=== PATIENT | female | born 1985 | race Caucasian/White ===

== ENCOUNTER 2017-01-28 09:27 | Emergency (ER) | payer SELFPAY ==
[2017-01-28 09:33] VITALS: BMI 19.6
[2017-01-28 10:49] VITALS: BP 123/71; PULSE 82; TEMP 98.1
== END 2017-01-28 14:25 | disposition home or self-care (01) ==
LOC: JER 09:27
DX: O26.892 Other specified pregnancy related conditions, second trimester (principal); O46.8X2 Other antepartum hemorrhage, second trimester; Z3A.21 21 weeks gestation of pregnancy
CPT/HCPCS: 76801-TC; 99281-25